=== PATIENT | female | born 1960 | race African-American/Black ===

== ENCOUNTER 2018-10-12 12:57 | Inpatient (IN) | payer OTHER ==
[2018-10-12 14:53] VITALS: BMI 22.0
--- NOTE | 2018-10-12 16:36 | HP ---
COWS - Scale Resting Pulse: 0= [place] 80 or Below Sweatin= Chills/Flushing Restless Observation: 1= Difficult to Sit Still Pupil Size: 1= Pupils >than Normal Bone or Joint Aches: 2= Severe Diffuse Aches Runny Nose/ Eye Tearin= Runny Nose/Eyes GI Upset > 30mins: 2= Nausea/Diarrhea Tremor Observation: 2= Slight Tremor Visible Yawning Observation: 2= >3x During Session Anxiety or Irritability: 2=Irritable/Anxious Goose Flesh Skin: 0=Smooth Skin COWS Score: 15 CIWA Score - Admission Criteria [facility] Guidelines: Admission for Medically Managed Detox: Requires at least one of the followin. CIWA greater than 12 2. Seizures within the past 24 hours 3. Delirium tremens within the past 24 hours 4. Hallucinations within the past 24 hours 5. Acute intervention needed for co occurring medical disorder 6. Acute intervention needed for co occurring psychiatric disorder 7. Severe withdrawal that cannot be handled at a lower level of care (continued vomiting, continued diarrhea, abnormal vital signs) requiring intravenous medication and/or fluids 8. Admission ROS [facility] Chief Complaint: i need help to stop using heroin,cocaine, Allergies/Adverse Reactions: Allergies Allergy/AdvReac Type Severity Reaction Status Date / Time No Known Allergies Allergy Verified 10/12/18 16:30 History of Present Illness: this 58 years old female with heroin,cocaine,seeking detox,withdrawal symptom, never been in detox before old injury of right knee,ambulation with cane asthma ambulation with cane lap cholecystectomy 1996 no significant period of sobriety - Ebola screening Have you traveled outside of the country in the last 21 days: No (N) Have you had contact with anyone from an Ebola affected area: No Have you been sick,other than usual withdrawal symptoms: No Do you have a fever: No - Review of Systems Constitutional: Chills, Loss of Appetite, Malaise, Night Sweats, Changes in sleep, Weakness EENT: reports: Tearing, Nose Congestion Respiratory: reports: No Symptoms reported Cardiac: reports: No Symptoms Reported GI: reports: Constipated, Poor Appetite, Abdominal cramping : reports: No Symptoms Reported Musculoskeletal: reports: Back Pain, Joint Pain (old injury of right knee ambulation with cane), Muscle Pain, Joint Stiffness Integumentary: reports: Dryness Neuro: reports: Headache, Tremors Endocrine: reports: No Symptoms Reported Hematology: reports: No Symptoms Reported Psychiatric: reports: No Sypmtoms Reported, Judgement Intact, Mood/Affect Appropiate, Orientated x3, other (insomnia) Other Systems: Reviewed and Negative Patient History - Patient Medical History Hx Anemia: No Hx Asthma: Yes (on albuterol inhaler) Hx Chronic Obstructive Pulmonary Disease (COPD): No Hx Cancer: No Hx Cardiac Disorders: No Hx Congestive Heart Failure: No Hx Hypertension: No Hx Hypercholesterolemia: No Hx Pacemaker: No HX Cerebrovascular Accident: No Hx Seizures: No Hx Dementia: No Hx Diabetes: No Hx Gastrointestinal Disorders: No Hx Liver Disease: No Hx Genitourinary Disorders: No Hx Sexually Transmitted Disorders: No Hx Renal Disease (ESRD): No Hx Thyroid Disease: No Hx Human Immunodeficiency Virus (HIV): No (last 09/23 negative) Hx Hepatitis C: No Hx Depression: No Hx Suicide Attempt: No Hx Bipolar Disorder: No Hx Schizophrenia: No Other Medical History: anxiety,insomnia,no suicidal,no homicidal - Patient Surgical History Past Surgical History: No - PPD History Previous Implant?: Yes Documented Results: Negative w/o proof Implanted On Prior [facility] Admission?: No PPD to be Administered?: Yes - Reproductive History Patient is a Female of Child Bearing Age (11 -55 yrs old): No Patient : No - Smoking Cessation Smoking history: Current every day smoker Have you smoked in the past 12 months: Yes Aproximately how many cigarettes per day: 10 Cigars Per Day: 0 Hx Chewing Tobacco Use: No Initiated information on smoking cessation: Yes 'Breaking Loose' booklet given: 10/12/18 - Substance & Tx. History Hx Alcohol Use: No Hx Substance Use: Yes Substance Use Type: Cocaine, Heroin Hx Substance Use Treatment: No - Substances Abused Heroin Route: Inhalation Frequency: Daily Amount used: 5 bags Age of first use: 37 Date of Last Use: 10/12/18 Cocaine Route: Smoking Frequency: 1-2 times per week Amount used: 20$ Age of first use: 31 Date of Last Use: 10/11/18 Family Disease History - Family Disease History Family History: Denies Admission Physical Exam BHS - Vital Signs Vital Signs: Vital Signs - 24 hr 10/12/18 14:50 Temperature 97.7 F Pulse Rate 79 Respiratory 18 Rate Blood Pressure 94/61 - Physical General Appearance: Yes: Moderate Distress, Tremorous, Sweating, Anxious HEENTM: Yes: Normal ENT Inspection, Normocephalic, CALLUM, Pharynx Normal Respiratory: Yes: Within Normal Limits, Lungs Clear, Normal Breath Sounds Neck: Yes: Within Normal Limits, Supple, Trachea in good position Breast: Yes: Breast Exam Deferred Cardiology: Yes: Within Normal Limits, Regular Rhythm, Regular Rate, S1, S2 Abdominal: Yes: Within Normal Limits, Normal Bowel Sounds, Non Tender, Soft Genitourinary: Yes: Within Normal Limits Back: Yes: Muscle Spasm Musculoskeletal: Yes: Back pain, Joint Stiffness, Muscle Pain Extremities: Yes: Tremors, Other (old injury of right knee) Neurological: Yes: plasticator II-XII NML intact, Fully Oriented, Alert, Motor Strength 5/5 Integumentary: Yes: Dry Lymphatic: Yes: Within Normal Limits - Diagnostic (1) Opioid dependence with withdrawal Current Visit: Yes Status: Acute (2) Cocaine dependence Current Visit: Yes Status: Acute (3) Use of cane as ambulatory aid Current Visit: Yes Status: Acute Cleared for Admission [facility] - Detox or Rehab [facility] Level of Care: Medically Managed Detox Regimen/Protocol: Methadone [facility] Breath Alcohol Content Breath Alcohol Content: 0 Urine Pregancy Test - Result Urine Test Results: Negative- NO Line Present Urine Drug Screen - Results Drug Screen Negative: No Urine Drug Screen Results: BIJAL-Cocaine, OPI-Opiates, MTD-Methadone, FEN-Fentanyl
[2018-10-12] MEDS ORDERED: MAG HYDROX/AL HYDROX/SIMETH 30 ML UNIT-DOSE CUP PO PRN (17:34)
[2018-10-12] MEDS ORDERED: IBUPROFEN 400 MG TABLET (FP) PO PRN (17:34)
[2018-10-12] MEDS ORDERED: MAGNESIUM CITRATE 300 ML BOTTLE PO PRN (17:34)
[2018-10-12] MEDS ORDERED: METHADONE HCL 10 MG TABLET (FOR DETOX USE ONLY) PO ONE ×2 (17:34→23:00)
[2018-10-12] MEDS ORDERED: MENTHOL/PHENOL 1 EACH UD MM PRN (17:34)
[2018-10-12] MEDS ORDERED: ACETAMINOPHEN 325 MG TABLET (FP) PO PRN (17:34)
[2018-10-12] MEDS ORDERED: LOPERAMIDE HCL 2 MG CAPSULE PO PRN (17:34)
[2018-10-12] MEDS ORDERED: guaiFENesin/D-METHORPHAN HB 10 ML UNIT-DOSE CUPS PO PRN (17:34)
[2018-10-12] MEDS ORDERED: P-EPHED 60MG/TRIPROLIDI 2.5MG TABLET PO PRN (17:34)
[2018-10-12] MEDS ORDERED: ALBUTEROL SO4 8 GM HFA INHALER IH PRN (17:37)
[2018-10-12] MEDS: diazePAM 5 MG TABLET PO PRN (18:49)
[2018-10-12] MEDS: THIAMINE HCL 100 MG TABLET (FP) PO SCH (22:20)
[2018-10-12] MEDS: DOCUSATE SODIUM 100 MG CAPSULE (FP) PO SCH (22:20)
[2018-10-12] MEDS: AMMONIUM LACTATE 12% LOTION 225 GM BOTTLE TP SCH (22:45)
[2018-10-12] MEDS: NICOTINE POLACRILEX 2 MG GUM BC PRN (22:46)
[2018-10-13] MEDS: diazePAM 5 MG TABLET PO PRN ×2 (05:18→10:43)
[2018-10-13] MEDS: DOCUSATE SODIUM 100 MG CAPSULE (FP) PO SCH ×3 (05:18→22:13)
--- NOTE | 2018-10-13 09:45 | EKG ---
Test Reason : Blood Pressure : / mmHG Vent. Rate : 060 BPM Atrial Rate : 060 BPM P-R Int : 180 ms QRS Dur : 078 ms QT Int : 402 ms P-R-T Axes : 068 056 063 degrees QTc Int : 402 ms NORMAL SINUS RHYTHM WITH SINUS ARRHYTHMIA NORMAL ECG NO PREVIOUS ECGS AVAILABLE Confirmed by NORMA ALARCON, KALEIGH ([id number]) on 10/13/2018 9:45:10 AM Referred By: Confirmed By:KALEIGH GREEN MD
[2018-10-13] MEDS ORDERED: METHADONE HCL 10 MG TABLET (FOR DETOX USE ONLY) PO ONE (10:00)
[2018-10-13] MEDS: PRENATAL VITAMINS W/ FOLIC ACID TABLET (FP) PO SCH (10:40)
[2018-10-13] MEDS: AMMONIUM LACTATE 12% LOTION 225 GM BOTTLE TP SCH ×2 (10:40→22:13)
[2018-10-13] MEDS: NICOTINE POLACRILEX 2 MG GUM BC PRN (10:42)
[2018-10-13] MEDS: NICOTINE 21 MG/24 HOURS TOPICAL PATCH TD SCH (10:42)
--- NOTE | 2018-10-13 13:41 | PN ---
BHS COWS - Scale Resting Pulse: 0= [place] 80 or Below Sweatin= Chills/Flushing Restless Observation: 1= Difficult to Sit Still Pupil Size: 0= Normal to Room Light Bone or Joint Aches: 0= None Runny Nose/ Eye Tearin= None GI Upset > 30mins: 1= Stomach Cramp Tremor Observation of Outstretched Hands: 0= None Yawning Observation: 1= 1-2x During Session Anxiety or Irritability: 2=Irritable/Anxious Goose Flesh Skin: 3=Piloerection COWS Score: 9 BHS Progress Note (SOAP) Subjective: Sweating, Constipation, Stomach Cramping, Fatigue. Objective: PATIENT A & O X 3, OBSERVED AMBULATING ON UNIT. IN NO ACUTE DISTRESS. 10/13/18 13:40 Vital Signs Temperature 97.9 F 10/13/18 10:14 Pulse Rate 62 10/13/18 10:14 Respiratory Rate 18 10/13/18 10:14 Blood Pressure 135/72 10/13/18 10:14 O2 Sat by Pulse Oximetry (%) ADMISSION LABS RESULTS PENDING. 10/13/18 13:40 Assessment: 10/13/18 13:40 WITHDRAWAL SYMPTOMS. Plan: CONTINUE DETOX. INCREASE DAILY PO FLUID INTAKE. PRN MOM FOR CONSTIPATION.
[2018-10-13 14:41] LABS: HEMOGLOBIN 12.2 GM/dL (10.7-15.3); MCH 30.8 pg (25.7-33.7); MEAN CELL VOLUME 96.3 fl (80-96); MEAN PLT VOLUME 8.4 fl (7.5-11.1); PLATELET COUNT 170 K/MM3 (134-434); RBC 3.95 M/mm3 (3.60-5.2); RDW 14.5 % (11.6-15.6); WHITE BLOOD COUNT 4.7 K/mm3 (4.0-10.0)
[2018-10-13 14:57] LABS: ALK PHOS 88 U/L (45-117); ANION GAP 4 MMOL/L (8-16); BILIRUBIN,TOTAL 0.5 mg/dL (0.2-1); BLOOD UREA NITROGEN 13 mg/dL (7-18); CALCIUM 8.2 mg/dL (8.5-10.1); CHLORIDE 104 mmol/L (98-107); CO2 29 mmol/L (21-32); CREATININE 0.7 mg/dL (0.55-1.3); GLUCOSE,RANDOM 79 mg/dL (74-106); POTASSIUM 4.6 mmol/L (3.5-5.1); SGOT/AST 18 U/L (15-37); SGPT/ALT 23 U/L (13-61); SODIUM 137 mmol/L (136-145); TOT PROT 6.4 g/dl (6.4-8.2)
[2018-10-13] MEDS: THIAMINE HCL 100 MG TABLET (FP) PO SCH (22:13)
[2018-10-13] MEDS: MELATONIN 5 MG TABLETS PO PRN (22:14)
[2018-10-14] MEDS: DOCUSATE SODIUM 100 MG CAPSULE (FP) PO SCH ×3 (06:19→22:10)
[2018-10-14] MEDS ORDERED: METHADONE HCL 5 MG TABLET (FOR DETOX USE ONLY) PO ONE (10:00)
[2018-10-14] MEDS: PRENATAL VITAMINS W/ FOLIC ACID TABLET (FP) PO SCH (10:20)
[2018-10-14] MEDS: MAGNESIUM HYDROX 2400MG/30ML ORAL SUSPENSION 30 ML CUP PO PRN (10:20)
[2018-10-14] MEDS: AMMONIUM LACTATE 12% LOTION 225 GM BOTTLE TP SCH ×2 (10:21→22:14)
[2018-10-14] MEDS: NICOTINE POLACRILEX 2 MG GUM BC PRN ×2 (10:21→13:42)
[2018-10-14] MEDS: NICOTINE 21 MG/24 HOURS TOPICAL PATCH TD SCH (10:21)
[2018-10-14] MEDS: SENNOSIDES 8.6MG TABLET (FP) PO SCH ×2 (10:57→22:11)
--- NOTE | 2018-10-14 13:05 | PN ---
BHS COWS - Scale Resting Pulse: 0= [place] 80 or Below Sweatin= No chills or Flushing Restless Observation: 1= Difficult to Sit Still Pupil Size: 0= Normal to Room Light Bone or Joint Aches: 0= None Runny Nose/ Eye Tearin= Runny Nose/Eyes GI Upset > 30mins: 0= None Tremor Observation of Outstretched Hands: 0= None Yawning Observation: 1= 1-2x During Session Anxiety or Irritability: 2=Irritable/Anxious Goose Flesh Skin: 3=Piloerection COWS Score: 9 BHS Progress Note (SOAP) Subjective: Constipation, Fatigue, Interrupted Sleep, Runny Nose. Objective: PATIENT A & O X 3, OBSERVED AMBULATING ON UNIT. IN NO ACUTE DISTRESS. 10/14/18 13:01 Vital Signs Temperature 97.5 F L 10/14/18 09:05 Pulse Rate 64 10/14/18 09:05 Respiratory Rate 18 10/14/18 09:05 Blood Pressure 101/52 L 10/14/18 09:05 O2 Sat by Pulse Oximetry (%) Laboratory Tests 10/13/18 10/13/18 10/13/18 10:30 10:30 10:30 WBC 4.7 RBC 3.95 Hgb 12.2 Hct 38.0 MCV 96.3 H MCH 30.8 MCHC 32.0 RDW 14.5 Plt Count 170 MPV 8.4 Sodium 137 Potassium 4.6 Chloride 104 Carbon Dioxide 29 Anion Gap 4 L BUN 13 Creatinine 0.7 Creat Clearance w eGFR > 60 Random Glucose 79 Calcium 8.2 L Total Bilirubin 0.5 AST 18 ALT 23 Alkaline Phosphatase 88 Total Protein 6.4 Albumin 3.0 L RPR Titer Nonreactive LABS NOTED. Assessment: 10/14/18 13:02 WITHDRAWAL SYMPTOMS. Plan: CONTINUE DETOX. INCREASE DAILY PO FLUID INTAKE. SENNA BID FOR CONSTIPATION (COLACE PREVIOUSLY ORDERED).
[2018-10-14] MEDS: diazePAM 5 MG TABLET PO PRN ×2 (14:04→22:13)
[2018-10-14] MEDS: THIAMINE HCL 100 MG TABLET (FP) PO SCH (22:11)
[2018-10-15] MEDS: DOCUSATE SODIUM 100 MG CAPSULE (FP) PO SCH ×3 (06:22→22:26)
[2018-10-15] MEDS ORDERED: METHADONE HCL 5 MG TABLET (FOR DETOX USE ONLY) PO ONE (10:00)
--- NOTE | 2018-10-15 10:22 | PN ---
BHS Progress Note (SOAP) Subjective: constipation chills body aches tired nasal congestion sweats Objective: 10/15/18 10:21 Vital Signs Temperature 98.2 F 10/15/18 09:26 Pulse Rate 66 10/15/18 09:26 Respiratory Rate 18 10/15/18 09:26 Blood Pressure 135/89 10/15/18 09:26 O2 Sat by Pulse Oximetry (%) [id number] ambulating no acute distress Assessment: 10/15/18 10:21 withdrawal sx Plan: continue detox increase fluids MOM citroma
[2018-10-15] MEDS: AMMONIUM LACTATE 12% LOTION 225 GM BOTTLE TP SCH ×2 (10:23→22:27)
[2018-10-15] MEDS: NICOTINE 21 MG/24 HOURS TOPICAL PATCH TD SCH (10:23)
[2018-10-15] MEDS: SENNOSIDES 8.6MG TABLET (FP) PO SCH ×2 (10:23→22:26)
[2018-10-15] MEDS: PRENATAL VITAMINS W/ FOLIC ACID TABLET (FP) PO SCH (10:23)
[2018-10-15] MEDS: diazePAM 5 MG TABLET PO PRN (10:27)
[2018-10-15] MEDS: NICOTINE POLACRILEX 2 MG GUM BC PRN ×2 (10:28→22:35)
[2018-10-15] MEDS: MAGNESIUM HYDROX 2400MG/30ML ORAL SUSPENSION 30 ML CUP PO PRN (13:51)
[2018-10-15] MEDS: hydrOXYzine PAMOATE 25 MG CAPSULE (FP) PO PRN (18:29)
[2018-10-15] MEDS: THIAMINE HCL 100 MG TABLET (FP) PO SCH (22:26)
[2018-10-15] MEDS: MELATONIN 5 MG TABLETS PO PRN (22:27)
[2018-10-16] MEDS: DOCUSATE SODIUM 100 MG CAPSULE (FP) PO SCH ×3 (06:41→22:35)
[2018-10-16] MEDS ORDERED: METHADONE HCL 10 MG TABLET (FOR DETOX USE ONLY) PO ONE (10:00)
[2018-10-16] MEDS: AMMONIUM LACTATE 12% LOTION 225 GM BOTTLE TP SCH ×2 (10:48→22:36)
[2018-10-16] MEDS: PRENATAL VITAMINS W/ FOLIC ACID TABLET (FP) PO SCH (10:48)
[2018-10-16] MEDS: SENNOSIDES 8.6MG TABLET (FP) PO SCH ×3 (10:48→22:35)
[2018-10-16] MEDS: NICOTINE 21 MG/24 HOURS TOPICAL PATCH TD SCH (10:49)
[2018-10-16] MEDS: NICOTINE POLACRILEX 2 MG GUM BC PRN ×3 (10:49→22:41)
[2018-10-16] MEDS: hydrOXYzine PAMOATE 25 MG CAPSULE (FP) PO PRN (11:25)
[2018-10-16] MEDS ORDERED: SODIUM PHOSPHATE/NA BIPHOS 133 ML ENEMA PR PRN (12:27)
--- NOTE | 2018-10-16 13:06 | PN ---
BHS Progress Note (SOAP) Subjective: Sweating, Tremors, Constipation. Objective: PATIENT A & O X 3, OBSERVED AMBULATING ON UNIT. IN NO ACUTE DISTRESS. 10/16/18 13:01 Vital Signs Temperature 97.5 F L 10/16/18 09:30 Pulse Rate 59 L 10/16/18 09:30 Respiratory Rate 18 10/16/18 09:30 Blood Pressure 99/59 L 10/16/18 09:30 O2 Sat by Pulse Oximetry (%) Laboratory Tests 10/13/18 10/13/18 10/13/18 10:30 10:30 10:30 WBC 4.7 RBC 3.95 Hgb 12.2 Hct 38.0 MCV 96.3 H MCH 30.8 MCHC 32.0 RDW 14.5 Plt Count 170 MPV 8.4 Sodium 137 Potassium 4.6 Chloride 104 Carbon Dioxide 29 Anion Gap 4 L BUN 13 Creatinine 0.7 Creat Clearance w eGFR > 60 Random Glucose 79 Calcium 8.2 L Total Bilirubin 0.5 AST 18 ALT 23 Alkaline Phosphatase 88 Total Protein 6.4 Albumin 3.0 L RPR Titer Nonreactive LABS NOTED. Assessment: 10/16/18 13:02 WITHDRAWAL SYMPTOMS. Plan: CONTINUE DETOX. INCREASE DAILY PO FLUID INTAKE. CONTINUE COLACE, SENNA FOR CONSTIPATION. PATIENT ADVISED TO FOLLOW-UP WITH ENGINEERING RECRUITER AFTER DISCHARGE FROM DETOX UNIT FOR HISTORY OF CHRONIC CONSTIPATION DESPITE TREATMENT. PATIENT VERBALIZED UNDERSTANDING OF RECOMMENDATION.
[2018-10-16] MEDS ORDERED: SODIUM PHOSPHATE/NA BIPHOS 133 ML ENEMA PR ONE (14:09)
--- NOTE | 2018-10-16 14:12 | PN ---
[facility] Progress Note Note: FLEET RECTAL ENEMA X 1 ORDERED FOR CONSTIPATION. PATIENT DENIES ABDOMINAL PAIN, BUT NOTES THAT SHE "HAS BEEN HAVING TROUBLE MOVING HER BOWELS." WHEN ASKED, PATIENT REPORTS THAT SHE HAS BEEN HAVING THIS PROBLEM FOR APPROX. 1 YEAR NOW. Leonel HAHN NP
--- NOTE | 2018-10-16 16:46 | PN ---
[facility] Progress Note Note: PATIENT REPORTS BOWEL MOVEMENT EFFECT FROM FLEET ENEMA WHEN ASKED LATER AFTER ADMINISTRATION OF ENEMA. PATIENT ADVISED TO FOLLOW-UP WITH STARCHMAKER DR. Leonel CORTEZ ([place], [place]) SOON POSSIBLE AFTER DISCHARGE FROM DETOX UNIT FOR FURTHER EVALUATION OF CHRONIC CONSTIPATION. PATIENT NOW NOTES THAT SHE IS SUPPOSED TO HAVE A "PROCEDURE" ON HER ABDOMEN (PATIENT UNCERTAIN ABOUT SPECIFIC TYPE OF PROCEDURE) RECOMMENDED BY MEDICAL PROVIDER IN RECENT PAST AND THAT SHE WILL FOLLOW-UP WITH DR. ROBERTS SHORTLY AFTER DISCHARGE FROM DETOX UNIT. Leonel HAHN NP.
[2018-10-16] MEDS: THIAMINE HCL 100 MG TABLET (FP) PO SCH (22:32)
[2018-10-16] MEDS: MELATONIN 5 MG TABLETS PO PRN (22:33)
[2018-10-17] MEDS ORDERED: METHADONE HCL 5 MG TABLET (FOR DETOX USE ONLY) PO ONE (06:00)
[2018-10-17 06:40] VITALS: BP 102/63; PULSE 56; TEMP 97
[2018-10-17] MEDS: DOCUSATE SODIUM 100 MG CAPSULE (FP) PO SCH (06:45)
--- NOTE | 2018-10-17 08:44 | DS ---
[facility] Detox Discharge Summary Admission Date: 10/12/18 Discharge Date: 10/17/18 - History Present History: Cocaine Dependence, Opioid Dependence - Physical Exam Results Vital Signs: Vital Signs Temperature 97.0 F L 10/17/18 06:40 Pulse Rate 56 L 10/17/18 06:40 Respiratory Rate 18 10/17/18 06:40 Blood Pressure 102/63 10/17/18 06:40 O2 Sat by Pulse Oximetry (%) - Treatment Hospital Course: Detox Protocol Followed, Detoxed Safely, Responded well, Discharged Condition Good, Rehab Referral Accepted - Medication Discharge Medications: Ambulatory Orders Ammonium Lactate Cream [Lac-Hydrin 12% *Cream*] 1 applic TP BID 10/12/18 Docusate Sodium [Colace -] 100 mg PO TID 10/12/18 Albuterol Sulfate Inhaler - [Ventolin Hfa Inhaler -] 2 puff IH Q4H PRN #1 inhaler 10/16/18 - Diagnosis (1) Cocaine dependence Current Visit: Yes Status: Chronic Qualifiers: Substance use status: uncomplicated Qualified Code(s): F14.20 - Cocaine dependence, uncomplicated (2) Knee pain, right Current Visit: Yes Status: Chronic Qualifiers: Chronicity: chronic Qualified Code(s): M25.561 - Pain in right knee; G89.29 - Other chronic pain (3) Opioid dependence with withdrawal Current Visit: Yes Status: Chronic (4) Asthma Current Visit: Yes Status: Chronic Qualifiers: Asthma severity: mild Asthma persistence: intermittent Asthma complication type: uncomplicated Qualified Code(s): J45.20 - Mild intermittent asthma, uncomplicated (5) Constipation Current Visit: Yes Status: Chronic Qualifiers: Constipation type: unspecified constipation type Qualified Code(s): K59.00 - Constipation, unspecified (6) Use of cane as ambulatory aid Current Visit: Yes Status: Chronic - AMA Did Patient Leave Against Medical Advice: No (going home)
== END 2018-10-17 09:03 | disposition home or self-care (01) | DRG 773 ==
LOC: YASAS 12:57 → Y6N 16:47
PROC: HZ2ZZZZ Detoxification Services for Substance Abuse Treatment (ICD-10-PCS; principal; 2018-10-12)
DX: F11.23 Opioid dependence with withdrawal (principal); F14.20 Cocaine dependence, uncomplicated; F17.210 Nicotine dependence, cigarettes, uncomplicated; J45.20 Mild intermittent asthma, uncomplicated; M25.561 Pain in right knee; K59.00 Constipation, unspecified; R26.2 Difficulty in walking, not elsewhere classified; Z99.89 Dependence on other enabling machines and devices
CPT/HCPCS: 36415; 80053; 85027; 86593; 93005; 93010